=== PATIENT | male | born 1995 | race Caucasian/White ===

== ENCOUNTER → 2021-07-06 | Outpatient (CLI) | payer OTHER | LOC: US 09:13 | DX: R10.11 Right upper quadrant pain (principal); K76.0 Fatty (change of) liver, not elsewhere classified; K80.80 Other cholelithiasis without obstruction | CPT/HCPCS: 76705 ==

== ENCOUNTER → 2021-12-08 | Day surgery (SDC) | payer OTHER ==
[~2021-12-08] MED LIST: FLUTICASONE SPRAY; PROAIR HFA8.5 GM INH; PROTONIX40 MG PO; RETIN A 0.1% TOP; TESTOSTERO200 MG/1 M INH; TOPROL XL25 MG PO; TRILEPTAL600 MG PO; VIIBRYD20 MG PO; WELLBUTRIN XL300 MG PO; XYZAL5 MG PO
== END | disposition home or self-care (01) ==
LOC: OR 06:10
DX: H69.93 Unspecified Eustachian tube disorder, bilateral (principal); H65.493 Other chronic nonsuppurative otitis media, bilateral; H90.0 Conductive hearing loss, bilateral; K21.9 Gastro-esophageal reflux disease without esophagitis; G47.30 Sleep apnea, unspecified; Z99.89 Dependence on other enabling machines and devices; F17.290 Nicotine dependence, other tobacco product, uncomplicated; Z88.0 Allergy status to penicillin; Z79.899 Other long term (current) drug therapy
CPT/HCPCS: C1726; J1100; J2001; J2370; J2405; J2704; J3010; J7120